=== PATIENT | female | born 1995 | race Caucasian/White ===

== ENCOUNTER 2022-04-30 00:14 | Inpatient (IN) | payer OTHER ==
[~2022-04-30] VITALS: Ht 162.6 cm; Wt 95.3 kg
[~2022-04-30 00:14] MED LIST: LEVOTHYROXINE125 MC1 PO; ROBITUSSIN COU237 M3 PO; TYLENOL325 MG PO
--- NOTE | 2022-04-30 06:21 | NUR ---
COVID 19 SWAB DONE TO BOTH NARES AND SENT TO IN HOUSE LAB.
--- NOTE | 2022-04-30 10:53 | PR ---
[facility] [address] [facility] [place], [place] [address] Signed Progress Notes IP Datetime Report Generated by CPN: 04/30/2022 10:53 PROGRESS NOTES: [id number] Impression: Normal Progression of Labor; Reassuring Heart Rate Procedures: Sterile Vag Exam Plan: Continue Present Management; Anesthesia Consult VITAL SIGNS: [id number] Vital Signs: Reviewed; Within Normal Limits EXAM: [id number] Dilatation: 2.0 Effacement: 70 Station: -2 Contractions: Irregular MEMBRANES: [id number] Comments: Pt seen and examined. Doing well. Very uncomfortable w/ contractions and requesting epidural. Cx now ripe and discussed expectant management vs AROM. Will reevaluate after epidural. FETUS A: [id number] FHR Baseline: 120 Variability: Moderate 6-25bpm Accelerations: 15X15 Decelerations: None FHR Category: Category I Comments on Fetus A: No evidence of metabolic acidosis FETUS B: [id number] Signing Physician: Dieudonne Preston DO Copies: ~ *Electronically Signed* 04/30/22 2850 DIEUDONNE PRESTON (SADE) DO PATIENT NAME: HAZEL BAINS PROGRESS NOTE DATE OF : 93 PHYSICIAN: DIEUDONNE PRESTON (SADE) DO RPT #: [id number] REPORT IS CONFIDENTIAL AND NOT TO BE RELEASED WITHOUT AUTHORIZATION
--- NOTE | 2022-04-30 13:08 | PR ---
[facility] [place] [facility] [address] [place], [place] [address] Signed Progress Notes IP Datetime Report Generated by TRACEY: 04/30/2022 13:08 PROGRESS NOTES: [id number] Impression: Normal Progression of Labor; Reassuring Heart Rate Procedures: Intrauterine Pressure Catheter; Scalp Electrode; Sterile Vag Exam Plan: Continue Present Management Informed Consent Obtain: Vaginal Delivery VITAL SIGNS: [id number] Vital Signs: Reviewed; Within Normal Limits EXAM: [id number] Dilatation: 3.0 Effacement: 75 Station: -2 Contractions: Irregular MEMBRANES: [id number] Comments: Called to pt room for prolonged deceleration. SROM a time of epidural. Hypotension noted after epidural that resolved w/ ephedrine; FHT now reassuring. Recommended IUPC/FSE that were placed w/out difficulty. Pt and fetus tolerated well. Continue expectant management FETUS A: [id number] FHR Baseline: 120 Variability: Moderate 6-25bpm Accelerations: 15X15 Decelerations: None FHR Category: Category I Comments on Fetus A: No evidence of metabolic acidosis FETUS B: [id number] Signing Physician: Dieudonne Preston DO Copies: ~ *Electronically Signed* 04/30/22 2351 DIEUDONNE PRESTON (SADE) DO PATIENT NAME: HAZEL BAINS PROGRESS NOTE DATE OF : 93 PHYSICIAN: DIEUDONNE PRESTON (JD) DO RPT #: [id number] REPORT IS CONFIDENTIAL AND NOT TO BE RELEASED WITHOUT AUTHORIZATION
--- NOTE | 2022-04-30 13:39 | PR ---
[facility] [facility] [address] [place], [place] [address] Signed Progress Notes IP Datetime Report Generated by CPN: 04/30/2022 13:39 PROGRESS NOTES: [id number] Impression: Reassuring Heart Rate Procedures: Sterile Vag Exam Plan: Tocolysis Informed Consent Obtain: Vaginal Delivery VITAL SIGNS: Z2356429 Vital Signs: Reviewed; Within Normal Limits EXAM: [id number] Dilatation: 3.5 Effacement: 80 Station: -2 Contractions: Irregular MEMBRANES: S1094830 Comments: Physician remains on unit monitoring closely. Moderate variability w/ overall reassuring pattern, but some decels noted. Normal BP and IVF bolusing. Maternal repositioning with some improvement in FHT. Discussed options and recommend dose of terbutaline. Discussed indications for if need arises, but will continue intrauterine rescussitation at this point. Reviewed overall reassuring tracing w/ moderate variability. All questions answered. FETUS A: [id number] FHR Baseline: 120 Variability: Moderate 6-25bpm Accelerations: 15X15 Decelerations: None FHR Category: Category I Comments on Fetus A: No evidence of metabolic acidosis FETUS B: [id number] Signing Physician: Dieudonne Preston DO Copies: ~ *Electronically Signed* 04/30/22 2500 DIEUDONNE PRESTON (SADE) DO PATIENT NAME: HAZEL BAINS PROGRESS NOTE DATE OF : 93 PHYSICIAN: DIEUDONNE PRESTON (JD) DO RPT #: [id number] REPORT IS CONFIDENTIAL AND NOT TO BE RELEASED WITHOUT AUTHORIZATION
--- NOTE | 2022-04-30 17:36 | PR ---
[facility] [address] [facility] [place], [place] [address] Signed Progress Notes IP Datetime Report Generated by CPN: 04/30/2022 17:36 PROGRESS NOTES: [id number] Impression: Normal Progression of Labor; Reassuring Heart Rate Procedures: Sterile Vag Exam Plan: Continue Present Management Informed Consent Obtain: Vaginal Delivery VITAL SIGNS: [id number] Vital Signs: Reviewed; Within Normal Limits EXAM: [id number] Dilatation: 6.0 Effacement: 80 Station: -2 Contractions: Irregular MEMBRANES: Q0398377 Comments: Pt seen and examined. Doing very well. Comfortable w/ contractions. FHT reassuring. Discussed anticipated course of labor. All questions answered FETUS A: [id number] FHR Baseline: 120 Variability: Moderate 6-25bpm Accelerations: 15X15 Decelerations: None FHR Category: Category I Comments on Fetus A: No evidence of metabolic acidosis FETUS B: [id number] Signing Physician: Dieudonne Preston DO Copies: ~ *Electronically Signed* 04/30/22 1231 DIEUDONNE PRESTON (SADE) DO PATIENT NAME: HAZEL BAINS PROGRESS NOTE DATE OF : 93 PHYSICIAN: DIEUDONNE PRESTON (SADE) DO RPT #: [id number] REPORT IS CONFIDENTIAL AND NOT TO BE RELEASED WITHOUT AUTHORIZATION
--- NOTE | 2022-04-30 18:58 | PR ---
[facility] [place] [facility] [address] [place], [place] [address] Signed Progress Notes IP Datetime Report Generated by CPN: 04/30/2022 18:58 PROGRESS NOTES: [id number] Impression: Normal Progression of Labor; Reassuring Heart Rate Other Impressions: Prolonged deceleration Procedures: Sterile Vag Exam Plan: Continue Present Management Informed Consent Obtain: Vaginal Delivery; Section Delivery VITAL SIGNS: Y8828049 Vital Signs: Reviewed; Within Normal Limits EXAM: [id number] Dilatation: 7.0 Effacement: 80 Station: -2 Contractions: Irregular MEMBRANES: H4133590 Comments: Called to pt's room for prolonged deceleration. FHT has generally been reassuring Cat 1 when pt developed prolonged deceleration that resolved w/ pt repositioning. Reviewed FHT w/ pt, possible causes, maneuvers for intrauterine rescussitation, and indications for if needed. Will continue expectant management. FETUS A: [id number] FHR Baseline: 120 Variability: Moderate 6-25bpm Accelerations: 15X15 Decelerations: None FHR Category: Category I Comments on Fetus A: No evidence of metabolic acidosis FETUS B: [id number] Signing Physician: Dieudonne Preston DO Copies: ~ *Electronically Signed* 04/30/22 5445 DIEUDONNE PRESTON (SADE) DO PATIENT NAME: HAZEL BAINS PROGRESS NOTE DATE OF : 93 PHYSICIAN: DIEUDONNE PRESTON (JD) DO RPT #: [id number] REPORT IS CONFIDENTIAL AND NOT TO BE RELEASED WITHOUT AUTHORIZATION
--- NOTE | 2022-04-30 21:06 | PR ---
[facility] [address] [place], [place] [address] Signed Progress Notes IP Datetime Report Generated by CPN: 04/30/2022 21:06 PROGRESS NOTES: [id number] Impression: Normal Progression of Labor; Reassuring Heart Rate Other Impressions: Prolonged deceleration Procedures: Sterile Vag Exam Plan: Continue Present Management Other Plans: Consider augmentation Informed Consent Obtain: Vaginal Delivery; Section Delivery VITAL SIGNS: Q5651316 Vital Signs: Reviewed; Within Normal Limits EXAM: [id number] Dilatation: 8.0 Effacement: 90 Station: -1 Contractions: Irregular MEMBRANES: E0755999 Comments: Pt seen and examined. Doing well. Comfortable w/ rebolus of epidural. FHT had been cat 1 until pt developed variable after SVE. Will consider augmentation per protocol. Discussed anticipated course of labor / delivery. Reviewed adequate pelvis, favorable position, and EFW FETUS A: [id number] FHR Baseline: 120 Variability: Moderate 6-25bpm Accelerations: 15X15 Decelerations: None FHR Category: Category I Comments on Fetus A: No evidence of metabolic acidosis FETUS B: [id number] Signing Physician: Dieudonne Preston DO Copies: ~ *Electronically Signed* 04/30/22 3803 DIEUDONNE PRESTON (SADE) DO PATIENT NAME: HAZEL BAINS PROGRESS NOTE DATE OF : 93 PHYSICIAN: DIEUDONNE PRESTON (JD) DO RPT #: [id number] REPORT IS CONFIDENTIAL AND NOT TO BE RELEASED WITHOUT AUTHORIZATION
--- NOTE | 2022-04-30 23:12 | PR ---
[facility] [address] [place], [place] [address] Signed Progress Notes IP Datetime Report Generated by CPN: 04/30/2022 23:12 PROGRESS NOTES: [id number] Impression: Normal Progression of Labor; Reassuring Heart Rate Other Impressions: Prolonged deceleration Procedures: Sterile Vag Exam Plan: Continue Present Management; Anticipate Vaginal Delivery Other Plans: Consider augmentation Informed Consent Obtain: Vaginal Delivery VITAL SIGNS: [id number] Vital Signs: Reviewed; Within Normal Limits EXAM: [id number] Dilatation: 10.0 Effacement: 100 Station: 0 Contractions: Irregular MEMBRANES: [id number] Comments: Pt seen and examined. Doing well. Complete and pushed well w/ contraction. Reviewed anticipated course of 2nd stage of labor. Discussed anticipated . All questions answered FETUS A: [id number] FHR Baseline: 120 Variability: Moderate 6-25bpm Accelerations: 15X15 Decelerations: None FHR Category: Category I Comments on Fetus A: No evidence of metabolic acidosis FETUS B: [id number] Signing Physician: Dieudonne Preston DO Copies: ~ *Electronically Signed* 04/30/22 5638 DIEUDONNE PRESTON (SADE) DO PATIENT NAME: HAZEL BAINS PROGRESS NOTE DATE OF : 93 PHYSICIAN: DIEUDONNE PRESTON (JD) DO RPT #: [id number] REPORT IS CONFIDENTIAL AND NOT TO BE RELEASED WITHOUT AUTHORIZATION
--- NOTE | 2022-05-01 17:52 | PR ---
[facility] [address] [place], [place] [address] Signed PP Progress Notes Datetime Report Generated by CPN: 05/01/2022 17:52 SUBJECTIVE: [id number] Pain: Within Normal Limits Nausea/Vomiting: Denies Flatus: Yes Bowel Movement: No Vital Signs: [id number] Vital Signs: Reviewed; Within Normal Limits Cardiovascular: Normal Respiratory: Normal Abdomen/Uterus: Normal Lochia: Normal Vulva/Perineum: Not Done Breasts: Not Done CVA Tenderness: Normal Extremities: Normal Incision: Not Applicable Progress: Normal Exam Comments: Fundus firm U-2 nontender IMPRESSION/PLAN/PROCEDURES: [id number] Impression: Normal Progression Plan: Continue Present Management Progress Notes: Pt doing well. Ambulating, voiding, and tolerating full diet. Pain and lochia minimal. No concerns. Anticipate d/c home tomorrow Signing Physician: Dieudonne Preston DO Copies: ~ *Electronically Signed* 05/01/22 1751 DIEUDONNE PRESTON (SADE) DO PATIENT NAME: CRISTA BAINSNEY DEEDEE PROGRESS NOTE DATE OF : 93 PHYSICIAN: DIEUDONNE PRESTON (SADE) DO RPT #: [id number] REPORT IS CONFIDENTIAL AND NOT TO BE RELEASED WITHOUT AUTHORIZATION
--- NOTE | 2022-05-02 08:24 | PR ---
[facility] [address] [place], [place] [address] Signed PP Progress Notes Datetime Report Generated by CPN: 05/02/2022 08:24 SUBJECTIVE: [id number] Pain: Within Normal Limits Nausea/Vomiting: Denies Flatus: Yes Bowel Movement: Yes Vital Signs: P1504479 Vital Signs: Reviewed Cardiovascular: Normal Respiratory: Normal Abdomen/Uterus: Normal Lochia: Normal Vulva/Perineum: Not Done Breasts: Not Done CVA Tenderness: Normal Extremities: Normal Incision: Not Applicable Progress: Normal Exam Comments: Fundus firm U-2 nontender IMPRESSION/PLAN/PROCEDURES: [id number] Impression: Normal Progression Plan: Discharge Progress Notes: Pt seen and examined. Doing well. Ambulating, voiding, and tolerating full diet. Pain and lochia minimal. well. No fevers/chills or other concerns. Desires d/c home. Reviewed d/c instructions, medications, and course. All questions answered. Signing Physician: Dieudonne Preston DO Copies: ~ *Electronically Signed* 05/02/22 0808 DIEUDONNE PRESTON (SADE) DO PATIENT NAME: HAZEL BAINS PROGRESS NOTE DATE OF : 93 PHYSICIAN: DIEUDONNE PRESTON (SADE) DO RPT #: [id number] REPORT IS CONFIDENTIAL AND NOT TO BE RELEASED WITHOUT AUTHORIZATION
== END 2022-05-02 13:00 | disposition home or self-care (01) | DRG 807 ==
LOC: FBC 00:14
PROVIDERS: ADMIT Obstetrics & Gynecology; ATTEND Obstetrics & Gynecology
PROC: 10E0XZZ Delivery of Products of Conception, External Approach (ICD-10-PCS; principal; 2022-04-30)
PROC: 0KQM0ZZ Repair Perineum Muscle, Open Approach (ICD-10-PCS; 2022-04-30)
PROC: 3E0P7VZ Introduction of Hormone into Female Reproductive, Via Natural or Artificial Opening (ICD-10-PCS; 2022-04-30)
PROC: 00HU33Z Insertion of Infusion Device into Spinal Canal, Percutaneous Approach (ICD-10-PCS; 2022-04-30)
PROC: 3E0R3BZ Introduction of Anesthetic Agent into Spinal Canal, Percutaneous Approach (ICD-10-PCS; 2022-04-30)
DX: O99.284 Endocrine, nutritional and metabolic diseases complicating childbirth (principal); E03.9 Hypothyroidism, unspecified; Z37.0 Single live birth; O76 Abnormality in fetal heart rate and rhythm complicating labor and delivery; Z67.10 Type A blood, Rh positive; O99.02 Anemia complicating childbirth; D64.9 Anemia, unspecified; Z20.822 Contact with and (suspected) exposure to COVID-19; O70.1 Second degree perineal laceration during delivery; O48.0 Post-term pregnancy; Z3A.41 41 weeks gestation of pregnancy; Z87.891 Personal history of nicotine dependence
CPT/HCPCS: 01960; 36415; 85027; 86850; 86900; 86901; 87502; A9270; C9803; J2590; J2795; J3010; J3105; J7121; U0003

== ENCOUNTER 2024-07-31 00:03 | Inpatient (IN) | payer OTHER ==
[~2024-07-31] VITALS: Ht 162.6 cm; Wt 102.1 kg
[2024-07-31] MEDS ORDERED: LACTATED RINGER'S 1,000 ML IV PRN (00:45)
[2024-07-31] MEDS ORDERED: LACTATED RINGER'S 1,000 ML IV SCH (00:45)
[2024-07-31] MEDS ORDERED: MAGNESIUM HYDROXIDE/AL HYDROX 30 ML CUP PO PRN ×2 (00:45→22:00)
[2024-07-31] MEDS ORDERED: miSOPROStoL 25 MCG TAB BUCCAL SCH (00:45)
[2024-07-31] MEDS ORDERED: miSOPROStoL 25 MCG TAB PV ONE (00:45)
[2024-07-31] MEDS ORDERED: CALCIUM CARBONATE 500 MG CHEW PO PRN ×2 (00:45→22:00)
[2024-07-31 01:12] LABS: HEMOGLOBIN 12.1 g/dL (11.2-15.7); MCH 29.9 PG (25.6-32.2); MCHC 33.6 g/dL (32.2-35.5); MCV 88.9 fL (79.4-94.8); RBC 4.05 M/uL (3.93-5.22)
[2024-07-31 01:25] LABS: AMPHETAMINES, URINE NEGATIVE (NEGATIVE); BARBITURATES, URINE NEGATIVE (NEGATIVE); BENZODIAZEPINE, URINE NEGATIVE (NEGATIVE); BUPRENORPHINE, URINE NEGATIVE (NEGATIVE); CANNABINOID, URINE NEGATIVE (NEGATIVE); COCAINE, URINE NEGATIVE (NEGATIVE); ECSTASY, URINE NEGATIVE (NEGATIVE); FENTANYL, URINE NEGATIVE (NEGATIVE); METHADONE, URINE NEGATIVE (NEGATIVE); OPIATES, URINE NEGATIVE (NEGATIVE); OXYCODONE, URINE NEGATIVE (NEGATIVE); PHENCYCLIDINE, URINE NEGATIVE (NEGATIVE)
[2024-07-31 01:58] LABS: ABO A; RH POSITIVE
[2024-07-31 01:59] LABS: ANTIBODY SCREEN NEGATIVE
[2024-07-31 02:53] VITALS: BP 120/67
[2024-07-31] MEDS ORDERED: miSOPROStoL 25 MCG TAB PV SCH (04:30)
[2024-07-31] MEDS ORDERED: ondansetron HCL 4 MG/2 ML VIAL IV PRN (07:30)
[2024-07-31] MEDS ORDERED: OXYTOCIN/0.9 % SODIUM CHLORIDE 500 ML IV SCH ×3 (07:30→22:00)
[2024-07-31] MEDS ORDERED: fentaNYL citrate 100 MCG/2 ML VIAL ONE ×3 (11:17→20:29)
[2024-07-31] MEDS ORDERED: ROPIVACAINE 0.2% 200 ML BAG ONE (11:17)
[2024-07-31] MEDS ORDERED: ROPIVACAINE 0.2% 200 ML BAG EPIDURAL SCH (12:00)
[2024-07-31] MEDS ORDERED: LACTATED RINGER'S 500 ML IV PRN (12:00)
[2024-07-31] MEDS ORDERED: LACTATED RINGER'S 2,000 ML IV ONE (12:00)
[2024-07-31] MEDS ORDERED: ePHEDrine sulfate 5 MG/ML SYRINGE IV PRN (12:00)
[2024-07-31] MEDS ORDERED: SODIUM CHLORIDE 0.9% 20 ML IV ONE ×3 (12:11→20:29)
[2024-07-31] MEDS ORDERED: ePHEDrine sulfate 50 MG/ML AMP ONE (12:11)
--- NOTE | 2024-07-31 12:39 | PR ---
[facility] [address] [place], [place] [address] Signed Progress Notes IP Datetime Report Generated by CPLillian: 07/31/2024 12:39 PROGRESS NOTES: [id number] Impression: Normal Progression of Labor; Reassuring Heart Rate Procedures: Sterile Vag Exam Plan: Continue Present Management; Augmentation VITAL SIGNS: [id number] Vital Signs: Reviewed; Within Normal Limits EXAM: [id number] Dilatation: 3.5 Effacement: 75 Station: -2 Contractions: q 1-7 min (irregular) pit = 1 MEMBRANES: [id number] Amniotic Fluid Color: Clear Comments: Pt seen and examined. Doing well. Comfortable w/ epidural which was kindly placed by anesthesia. Pt w/ prolonged deceleration that resolved. Otherwise Cat 1 tracing. Pitocin was discontinued but now restarted at 1. Continue low dose augmentation per policy. Reviewed reassuring FHT, adequate pelvis, and anticipation of . All questions answered. FETUS A: C6248301 FHR Baseline: 135 Variability: Moderate 6-25bpm Accelerations: None Decelerations: None FHR Category: Category I Comments on Fetus A: No evidence of metabolic acidosis FETUS B: [id number] Signing Physician: Dieudonne Preston DO Copies: ~ *Electronically Signed* 07/31/24 3804 DIEUDONNE PRESTON (SADE) DO PATIENT NAME: HAZEL BAINS PROGRESS NOTE DATE OF : 93 PHYSICIAN: DIEUDONNE PRESTON (JD) DO RPT #: [id number] REPORT IS CONFIDENTIAL AND NOT TO BE RELEASED WITHOUT AUTHORIZATION
--- NOTE | 2024-07-31 15:11 | PR ---
[facility] [address] [facility] [place], [place] [address] Signed Progress Notes IP Datetime Report Generated by CPN: 07/31/2024 15:11 PROGRESS NOTES: [id number] Impression: Normal Progression of Labor; Reassuring Heart Rate Procedures: Sterile Vag Exam Plan: Continue Present Management VITAL SIGNS: [id number] Vital Signs: Reviewed; Within Normal Limits EXAM: W7775049 Dilatation: 6.0 Effacement: 70 Station: -3 Contractions: q 2-4 min MEMBRANES: H9071764 Amniotic Fluid Color: Clear Comments: Pt seen and examined. Doing well. Comfortable w/ epidural. Now /-2 on pitocin. Reassuring FHT. Anticipate . FETUS A: [id number] FHR Baseline: 135 Variability: Moderate 6-25bpm Accelerations: None Decelerations: Variable FHR Category: Category II Comments on Fetus A: No evidence of metabolic acidosis FETUS B: [id number] Signing Physician: Dieudonne Preston DO Copies: ~ *Electronically Signed* 07/31/24 1511 DIEUDONNE PRESTON (SADE) DO PATIENT NAME: HAZEL BAINS PROGRESS NOTE DATE OF : 93 PHYSICIAN: DIEUDONNE PRESTON (SADE) DO RPT #: [id number] REPORT IS CONFIDENTIAL AND NOT TO BE RELEASED WITHOUT AUTHORIZATION
--- NOTE | 2024-07-31 16:46 | PR ---
[facility] [address] [place], [place] [address] Signed Progress Notes IP Datetime Report Generated by CPN: 07/31/2024 16:46 PROGRESS NOTES: [id number] Impression: Normal Progression of Labor; Reassuring Heart Rate Procedures: Intrauterine Pressure Catheter; Sterile Vag Exam Plan: Continue Present Management Informed Consent Obtain: Vaginal Delivery VITAL SIGNS: R4773083 Vital Signs: Reviewed; Within Normal Limits EXAM: [id number] Dilatation: 8.5 Effacement: 90 Station: -1 Contractions: Irregular MEMBRANES: [id number] Amniotic Fluid Color: Clear Comments: Called to pt room for prolonged deceleration. Pitocin d/c'd per policy. Excellent recovery w/ reassuring FHT. Cervix now 8-9. IUPC placed w/out difficulty to better assess contractions. Anticiapte . All questions answered. FETUS A: [id number] FHR Baseline: 135 Variability: Moderate 6-25bpm Accelerations: None Decelerations: Variable FHR Category: Category I Comments on Fetus A: No evidence of metabolic acidosis FETUS B: [id number] Signing Physician: Dieudonne Preston DO Copies: ~ *Electronically Signed* 07/31/24 0743 DIEUDONNE PRESTON (SADE) DO PATIENT NAME: HAZEL BAINS PROGRESS NOTE DATE OF : 93 PHYSICIAN: DIEUDONNE PRESTON (JD) DO RPT #: [id number] REPORT IS CONFIDENTIAL AND NOT TO BE RELEASED WITHOUT AUTHORIZATION
[2024-07-31] MEDS ORDERED: Ropivacaine HCl 0.5% 30 ML VIAL ONE (17:25)
--- NOTE | 2024-07-31 19:18 | PR ---
[facility] [address] [place], [place] [address] Signed Progress Notes IP Datetime Report Generated by CPN: 07/31/2024 19:18 PROGRESS NOTES: [id number] Impression: Normal Progression of Labor; Reassuring Heart Rate Procedures: Intrauterine Pressure Catheter; Sterile Vag Exam Plan: Continue Present Management; Anticipate Vaginal Delivery Informed Consent Obtain: Vaginal Delivery VITAL SIGNS: [id number] Vital Signs: Reviewed; Within Normal Limits EXAM: [id number] Dilatation: 8.0 Effacement: 80 Station: -1 Contractions: Irregular; inadequate MEMBRANES: Q6081060 Amniotic Fluid Color: Clear Comments: Pt seen and evaluated. Cx exam per RN. Variable deceleration noted but strip overall reassuring. Contractions inadequate. Reviewed plan of care at bedside w/ pt and oncoming RN. Discussed inadequate contractions and pitocin per policy. Anticipate . FETUS A: [id number] FHR Baseline: 135 Variability: Moderate 6-25bpm Accelerations: None Decelerations: Variable FHR Category: Category II Comments on Fetus A: No evidence of metabolic acidosis FETUS B: [id number] Signing Physician: Dieudonne Preston DO Copies: ~ *Electronically Signed* 07/31/241917 DIEUDONNE PRESTON (SADE) DO PATIENT NAME: HAZEL BAINS PROGRESS NOTE DATE OF : 93 PHYSICIAN: DIEUDONNE PRESTON (JD) DO RPT #: [id number] REPORT IS CONFIDENTIAL AND NOT TO BE RELEASED WITHOUT AUTHORIZATION
--- NOTE | 2024-07-31 21:15 | PR ---
[facility] [address] [facility] [place], [place] [address] Signed Progress Notes IP Datetime Report Generated by CPN: 07/31/2024 21:15 PROGRESS NOTES: [id number] Impression: Normal Progression of Labor; Reassuring Heart Rate Procedures: Sterile Vag Exam Plan: Anticipate Vaginal Delivery Informed Consent Obtain: Vaginal Delivery VITAL SIGNS: [id number] Vital Signs: Reviewed; Within Normal Limits EXAM: [id number] Dilatation: 10.0 Effacement: 80 Station: 0 Contractions: q 2-3 min MEMBRANES: [id number] Amniotic Fluid Color: Clear Comments: Pt seen and examined. Comfortable w/ epidural. FHT reassuring. Pt now complete. Will proceed with pushing. Anticipate soon. Again reviewed adequate pelvis and EFW FETUS A: [id number] FHR Baseline: 135 Variability: Moderate 6-25bpm Accelerations: None Decelerations: None FHR Category: Category I Comments on Fetus A: No evidence of metabolic acidosis FETUS B: [id number] Signing Physician: Dieudonne Preston DO Copies: ~ *Electronically Signed* 07/31/242114 DIEUDONNE PRESTON (SADE) DO PATIENT NAME: HAZEL BAINS PROGRESS NOTE DATE OF : 93 PHYSICIAN: DIEUDONNE PRESTON) DO RPT #: [id number] REPORT IS CONFIDENTIAL AND NOT TO BE RELEASED WITHOUT AUTHORIZATION
[2024-07-31] MEDS ORDERED: MAGNESIUM HYDROXIDE 30 ML UDC PO PRN (22:00)
[2024-07-31] MEDS ORDERED: HYDROCORTISONE ACETATE 25 MG SUPP PR PRN (22:00)
[2024-07-31] MEDS ORDERED: HYDROCODONE/ACETA 5/325 TAB PO PRN (22:00)
[2024-07-31] MEDS ORDERED: ACETAMINOPHEN 325 MG TAB PO PRN (22:00)
[2024-07-31] MEDS ORDERED: OXYCODONE/APAP 5/325 TAB PO PRN (22:00)
[2024-07-31] MEDS ORDERED: WITCH HAZEL/GLYCERIN 1 EA PAD TOP PRN (22:00)
[2024-07-31] MEDS ORDERED: IBUPROFEN 600 MG TAB PO PRN (22:00)
[2024-07-31] MEDS ORDERED: BENZOCAINE 60 ML AEROSOL TOP PRN (22:00)
[2024-08-01] MEDS ORDERED: LEVOTHYROXINE SODIUM 100 MCG TAB PO SCH (07:00)
--- NOTE | 2024-08-01 07:08 | PR ---
[facility] [address] [facility] [place], [place] [address] Signed PP Progress Notes Datetime Report Generated by CPN: 08/01/2024 07:07 SUBJECTIVE: [id number] Pain: Within Normal Limits Nausea/Vomiting: Denies Flatus: Yes Vital Signs: Y6463563 Vital Signs: Reviewed; Within Normal Limits Cardiovascular: Normal Respiratory: Normal Abdomen/Uterus: Normal Lochia: Normal Vulva/Perineum: Not Done Breasts: Not Done CVA Tenderness: Normal Extremities: Normal Incision: Not Applicable Progress: Normal Exam Comments: Fundus firm U-2 nontender IMPRESSION/PLAN/PROCEDURES: [id number] Impression: Normal Progression Plan: Continue Present Management Progress Notes: Pt seen and examined. Doing well. No concerns. Ambulating, voiding, and tolerating full diet. Pain and lochia minimal. well. No fevers/chills or other concerns. Anticipate d/c home tomorrow. Signing Physician: Dieudonne Preston DO Copies: ~ *Electronically Signed* 08/01/24 0707 DIEUDONNE PRESTON (SADE) DO PATIENT NAME: HAZEL BAINS PROGRESS NOTE DATE OF : 93 PHYSICIAN: DIEUDONNE PRESTON (SADE) DO RPT #: [id number] REPORT IS CONFIDENTIAL AND NOT TO BE RELEASED WITHOUT AUTHORIZATION
[2024-08-01 07:31] LABS: HEMATOCRIT 31.8 % (34.1-44.9); HEMOGLOBIN 10.8 g/dL (11.2-15.7); MCH 30.4 PG (25.6-32.2); MCV 89.6 fL (79.4-94.8); RBC 3.55 M/uL (3.93-5.22)
[2024-08-01] MEDS ORDERED: SENNOSIDES/DOCUSATE 1 EA TAB PO SCH (09:00)
--- NOTE | 2024-08-02 08:54 | PR ---
[facility] [address] [place], [place] [address] Signed PP Progress Notes Datetime Report Generated by CPN: 08/02/2024 08:54 SUBJECTIVE: [id number] Pain: Within Normal Limits Nausea/Vomiting: Denies Flatus: Yes Bowel Movement: No Vital Signs: H3027374 Vital Signs: Reviewed; Within Normal Limits Cardiovascular: Normal Respiratory: Normal Abdomen/Uterus: Normal Lochia: Normal Vulva/Perineum: Not Done Breasts: Not Done CVA Tenderness: Normal Extremities: Normal Incision: Not Applicable Progress: Normal Exam Comments: Fundus firm U-2 nontender IMPRESSION/PLAN/PROCEDURES: [id number] Impression: Normal Progression Plan: Discharge Progress Notes: Pt seen and examined. Doing well. Ambulating, voiding, and tolerating full diet. Pain and lochia minimal. well. No fevers / chills. No other concerns. Desires d/c home today. Planning vasectomy for contraception. Reviewed options for interval contraception including condoms / phexxi / abstinence and pt will consider. Discussed thyroid replacement. Reviewed most recent TSH and dose and will decrease w/ planned TSH _ 6 wk pp. All questions answered. Signing Physician: Dieudonne Preston DO Copies: ~ *Electronically Signed* 08/02/24 0854 DIEUDONNE PRESTON (SADE) DO PATIENT NAME: HAZEL BAINS PROGRESS NOTE DATE OF : 93 PHYSICIAN: DIEUDONNE PRESTON (JD) DO RPT #: [id number] REPORT IS CONFIDENTIAL AND NOT TO BE RELEASED WITHOUT AUTHORIZATION
[2024-08-03 07:53] LABS: AHG CROSSMATCH COMPATIBLE
== END 2024-08-02 11:30 | disposition home or self-care (01) | DRG 807 ==
LOC: FBC 00:03
PROVIDERS: ADMIT Obstetrics & Gynecology; ATTEND Obstetrics & Gynecology
PROC: 10E0XZZ Delivery of Products of Conception, External Approach (ICD-10-PCS; principal; 2024-07-31)
PROC: 0KQM0ZZ Repair Perineum Muscle, Open Approach (ICD-10-PCS; 2024-07-31)
PROC: 10H07YZ Insertion of Other Device into Products of Conception, Via Natural or Artificial Opening (ICD-10-PCS; 2024-07-31)
PROC: 3E0R3BZ Introduction of Anesthetic Agent into Spinal Canal, Percutaneous Approach (ICD-10-PCS; 2024-07-31)
PROC: 00HU33Z Insertion of Infusion Device into Spinal Canal, Percutaneous Approach (ICD-10-PCS; 2024-07-31)
DX: O48.0 Post-term pregnancy (principal); Z37.0 Single live birth; O76 Abnormality in fetal heart rate and rhythm complicating labor and delivery; O69.81X0 Labor and delivery complicated by cord around neck, without compression, not applicable or unspecified; O77.0 Labor and delivery complicated by meconium in amniotic fluid; O70.1 Second degree perineal laceration during delivery; Z3A.40 40 weeks gestation of pregnancy; O99.284 Endocrine, nutritional and metabolic diseases complicating childbirth; E03.9 Hypothyroidism, unspecified; Z90.89 Acquired absence of other organs; Z98.890 Other specified postprocedural states; Z87.891 Personal history of nicotine dependence; Z79.890 Hormone replacement therapy; Z87.440 Personal history of urinary (tract) infections; Z79.899 Other long term (current) drug therapy
CPT/HCPCS: 36415; 80307; 85027; 86850; 86900; 86901; 86922; A9270; J2405; J2795; J3010; J7121